=== PATIENT | female | born 1995 ===

== ENCOUNTER 2021-12-02 15:20 | Emergency (ER) | payer BC ==
[~2021-12-02] VITALS: Ht 157.5 cm; Wt 51.8 kg
[2021-12-02 15:35] VITALS: TEMP 98.4
[2021-12-02 16:40] LABS: COLLECTION METHOD CLEAN CATCH
[2021-12-02 16:56] LABS: PH 8 (5-8); URINE APPEARANCE Clear (CLEAR/HAZY); URINE BACTERIA Rare /hpf (NONE SEEN); URINE BILIRUBIN Negative (NEGATIVE); URINE BLOOD Negative (NEGATIVE); URINE COLOR Straw (YELLOW); URINE GLUCOSE Negative (NEGATIVE); URINE KETONE Negative (NEGATIVE); URINE LEUKOCYTE ESTERASE 2+ (NEGATIVE); URINE NITRATE Negative (NEGATIVE); URINE PROTEIN(semi-quant) Negative (NEGATIVE); URINE RBC 0-2 /hpf (0-2); URINE UROBILINOGEN Negative (NEGATIVE)
[2021-12-02] MEDS ORDERED: PHENERGAN 25 TA25 MG PO (17:56)
[2021-12-02 18:11] VITALS: BP 105/63; PULSE 97
[2021-12-04] MEDS ORDERED: CEPHALEXIN500 M1 PO (06:12)
== END 2021-12-02 18:11 | disposition home or self-care (01) ==
LOC: COL.ER 15:20 → EDBD 15:33 → COL.ER 15:33
PROVIDERS: Physician Assistant
DX: O99.352 Diseases of the nervous system complicating pregnancy, second trimester (principal); G43.909 Migraine, unspecified, not intractable, without status migrainosus; Z3A.15 15 weeks gestation of pregnancy
CPT/HCPCS: J1200; J2765; J7030